=== PATIENT | female | born 1950 | race Caucasian/White ===

== ENCOUNTER 2018-09-18 15:53 | Observation (INO) | payer MEDICARE ==
[2018-09-18] MEDS ORDERED: 0.9 % SODIUM CHLORIDE 1,000 ML BAG IV ONE (16:00)
--- NOTE | 2018-09-18 16:19 | Emergency Department Record ---
History of Present Illness - General Chief complaint: Weakness Stated complaint: IKNACREASED WEAKNESS Time Seen by Provider: 09/18/18 16:00 Source: Patient, RN notes reviewed - History of Present Illness Initial comments: Patient states she is unable to get around by herself and getting weaker and she has some redness of the left ankle and her primary is Dr. Roldan and she has redness in her sacrum. Currently she is living alone and her sister is helping and she is unable to help her. Daughter is here with her. 10 days ago she started getting weaker and family would like alf care. Daughter lives couple miles from her apartment. Daughter is Candy Mergener. Bilateral ankle edema. Patient uses an electric wheel chair - Related Data Home Medications Medication Instructions Recorded Confirmed Last Taken No Home Med [NO HOME MEDS] 09/18/18 09/18/18 Unknown Allergies Allergy/AdvReac Type Severity Reaction Status Date / Time No Known Drug Allergies Allergy Verified 03/12/15 18:58 Review of Systems Reviewed: No additional complaints except as noted below Constitutional: Reports: As per HPI, Weakness. Denies: Chills, Fever, Malaise, Night sweats, Weight change Eyes: Reports: As per HPI. Denies: Eye discharge, Eye pain, Photophobia, Vision change ENT: Reports: As per HPI. Denies: Congestion, Dental pain, Ear pain, Epistaxis , Hearing loss, Throat pain Respiratory: Reports: As per HPI. Denies: Cough, Dyspnea, Hemoptysis, Stridor, Wheezes Cardiovascular: Reports: As per HPI, Edema. Denies: Arrhythmia, Chest pain, Dyspnea on exertion, Murmurs, Orthopnea, Palpitations, Paroxysmal nocturnal dyspnea, Rheumatic Fever, Syncope Endocrine: Reports: As per HPI. Denies: Fatigue, Heat or cold intolerance, Polydipsia, Polyuria Gastrointestinal: Reports: As per HPI. Denies: Abdominal pain, Constipation, Diarrhea, Hematemesis, Hematochezia, Melena, Nausea, Vomiting Genitourinary: Reports: As per HPI. Denies: Abnormal menses, Discharge, Dyspareunia, Dysuria, Frequency, Hematuria, Incontinence, Retention, Urgency Musculoskeletal: Reports: As per HPI. Denies: Arthralgia, Back pain, Gout, Joint swelling, Myalgia, Neck pain Skin: Reports: As per HPI, Other (redness left leg with edema). Denies: Bruising, Change in color, Change in hair/nails, Lesions, Pruritus, Rash Neurological: Reports: As per HPI. Denies: Abnormal gait, Confusion, Headache, Numbness, Paresthesias, Seizure, Tingling, Tremors, Vertigo, Weakness Psychiatric: Reports: As per HPI. Denies: Anxiety, Auditory hallucinations, Depression, Homicidal thoughts, Suicidal thoughts, Visual hallucinations Hematological/Lymphatic: Reports: As per HPI. Denies: Anemia, Blood Clots, Easy bleeding, Easy bruising, Swollen glands Physical Exam - General General Appearance: Alert, Oriented x3, Cooperative, No acute distress - Head Head exam: Normal inspection - Eye Eye exam: Normal appearance, PERRL Pupils: Normal accommodation - ENT ENT exam: Normal exam, Mucous membranes moist, Normal external ear exam, Normal orophraynx, TM's normal bilaterally Ear exam: Normal external inspection. negative: External canal tenderness Nasal Exam: Normal inspection. negative: Discharge, Sinus tenderness Mouth exam: Normal external inspection, Tongue normal Teeth exam: Normal inspection. negative: Dental caries Throat exam: Normal inspection. negative: Tonsillar erythema, Tonsillar exudate - Neck Neck exam: Normal inspection, Full ROM. negative: Tenderness - Respiratory Respiratory exam: Normal lung sounds bilaterally. negative: Respiratory distress - Cardiovascular Cardiovascular Exam: Regular rate, Normal rhythm, Normal heart sounds - GI/Abdominal GI/Abdominal exam: Soft, Normal bowel sounds. negative: Tenderness - Rectal Rectal exam: Deferred - exam: Deferred - Extremities Extremities exam: Normal inspection, Full ROM, Normal capillary refill. negative: Tenderness - Back Back exam: Reports: Normal inspection, Full ROM. Denies: Muscle spasm, Rash noted, Tenderness - Neurological Neurological exam: Alert, Normal gait, Oriented X3, Reflexes normal - Psychiatric Psychiatric exam: Normal affect, Normal mood - Skin Skin exam: Intact, Other (discoloration of sacrum redness no ulcer but it doesn' t [place]. Early Decubitus, patient states she bumps herself getting into her wheel chair on the sacrum) Course - Reevaluation(s) Reevaluation #1: medical condition explained to me by her daughter and sister. Patient has not seen a neurologist in a long time and Dr. Roldan was trying to get her in to [facility] neurologist. 09/18/18 16:32 09/18/18 16:36 Reevaluation #2: patient is refusing to go home and family is refusing to take he home. patient unable to to transfer and needs one person to assist her. Her sister says she can not do it anymore. The family tells they have [place] social media manager coming out to see them this coming week but these refuse to go home to wait for that service. 09/18/18 17:44 Reevaluation #3: talked to family and will keep as an observation patient and have social service help place patient at a assisted. Family refusing to go home. 09/18/18 18:05 Medical Decision Making - Data Complexity MDM Data: Labs Ordered and/or Reviewed (potassium 3.3), X-Ray Ordered and/or Reviewed (chest xray no acute changes with a hiatal hernia), EKG Ordered and/or Reviewed (EKG NSR , No acute changes with tremor artifact from MS) - Lab Data Result diagrams: 09/18/18 16:05 09/18/18 16:05 Disposition Clinical Impression: Multiple sclerosis, Tremor, Weakness, Dehydration Sacral decubitus ulcer Qualifiers: Pressure injury stage: stage 1 Qualified Code(s): L89.151 - Pressure ulcer of sacral region, stage 1 Decision to Admit: Admit from ER Condition: (2) Stable Forms: Patient Portal Access Time of Disposition: 17:51 Quality - Quality Measures Quality Measures: N/A - Blood Pressure Screening Does Patient Have Any of the Following: No Blood Pressure Classification: Pre-Hypertensive BP Reading Systolic Measurement: 180 Diastolic Measurement: 89 Screening for High Blood Pressure: < First Hypertensive BP, F/U Documented > [ [id number]] First Hypertensive Follow-up Interventions: Referral to alternative/primary care provider.
[2018-09-18 16:21] LABS: BASO % 0.5 % (0-6); EOS % 3.2 % (0-6); LYMPH % 15.3 % (16-45); MEAN CELL VOLUME 83.7 fl (81-97); MEAN CORPUSCULAR HEMOGLOBIN 28.5 pg (27-33); MEAN CORPUSCULAR HGB CONC 34.1 g/dl (32-36); MEAN PLATELET VOLUME 9.5 fl (7.4-10.4); PLATELET COUNT 347 K/uL (130-400); RED BLOOD COUNT 5.26 M/uL (3.80-5.40); RED CELL DISTRIBUTION WIDTH 13.7 % (11.5-14.5); WHITE BLOOD COUNT W/O DIFF 5.6 K/uL (4.2-12.2)
[2018-09-18 16:32] LABS: BLOOD UREA NITROGEN 19 mg/dL (8-23); CREATININE 0.6 mg/dL (0.5-0.9); EST GLOMERULAR FILTRATION RATE > 60 mL/min
[2018-09-18 16:33] LABS: LIPASE 29 U/L (13-60); TOTAL PROTEIN 7.4 g/dL (6.6-8.7)
[2018-09-18 16:35] LABS: GLUCOSE,RANDOM 106 mg/dL (74-109)
[2018-09-18 16:37] LABS: ALT/SGPT 21 U/L (<33)
[2018-09-18 16:38] LABS: ALB/GLOB RATIO 1.4 (1.1-1.8); ALBUMIN 4.3 g/dL (4.0-5.0); ALKALINE PHOSPHATASE 99 U/L (45-87); AST/SGOT 30 U/L (10.0-35.0)
[2018-09-18 16:43] LABS: URINE APPEARANCE CLOUDY; URINE BILIRUBIN NEGATIVE (NEGATIVE); URINE BLOOD SMALL (NEGATIVE); URINE COLOR YELLOW; URINE GLUCOSE (UA) NEGATIVE (NEGATIVE); URINE KETONE 15 mg/dL (NEGATIVE); URINE LEUKOCYTE ESTERASE NEGATIVE (NEGATIVE); URINE NITRITE NEGATIVE (NEGATIVE); URINE PROTEIN TRACE (NEGATIVE); URINE UROBILINOGEN 0.2 E.U./dL (0.20 - 1.00)
[2018-09-18 16:50] LABS: URINE RBC 16 - 25 (NONE SEEN)
[2018-09-18 16:51] LABS: URINE BACTERIA NONE SEEN; URINE EPITHELIAL CELLS 0 - 2 (FEW); URINE WBC NONE SEEN (0-2/hpf)
[2018-09-18] MEDS ORDERED: POTASSIUM CHLORIDE 20 MEQ TABLET PO ONE (16:55)
[2018-09-18] MEDS ORDERED: NYSTATIN 15 GM TUBE TOP PRN (19:24)
--- NOTE | 2018-09-19 07:21 | RADIOLOGY REPORT ---
EXAM: CHEST, TWO VIEWS HISTORY: PATIENT IS EXHIBITING WEAKNESS. TECHNIQUE: Two views of the chest are provided along with the comparison study dated 03/03/18. FINDINGS: The cardiomediastinal silhouette is within normal limits for size and contour. The jd appear unremarkable. A significant large hiatal hernia is again noted. There is no radiographic evidence of a focal infiltrate, pleural effusion, or pneumothorax. IMPRESSION: LARGE HIATAL HERNIA APPEARS SIMILAR TO THE PRIOR EXAMINATION. NO RADIOGRAPHIC EVIDENCE OF A NEW, ACUTE INTRATHORACIC PROCESS. JOB NUMBER: [id number] [facility]
[2018-09-19] MEDS: ENOXAPARIN 40 MG/0.4 ML SYR SC SCH (09:21)
[2018-09-19] MEDS: ACETAMINOPHEN 500 MG TABLET PO PRN ×2 (10:32→23:23)
--- NOTE | 2018-09-19 10:49 | Rehab Evaluation ---
Patient Information - Patient Information Diagnosis: MS, weakness, dehydration, decubitus on sacrum Ordered Treatment: OT Evaluate and Treat Status: Initial Evaluation Surgery: No Past Medical/Surgical Hx: PAST MEDICAL/SURGICAL HISTORY Past Surgical History c-sections PMH - Respiratory Hx Respiratory Disorders No PMH - Cardiovascular Hx Cardiovascular Disorders No PMH - Neuro Hx Neurological Disorders Yes Comment: MS PMH - GI Hx Gastrointestinal Disorders No PMH - Hx Genitourinary Disorders No Patient No PMH - Endocrine Hx Endocrine Disorders No PMH - Musculoskeletal Hx Musculoskeletal Disorders Yes Hx Musculoskeletal Disease Yes: MS PMH - Psych Hx Psychiatric Problems No PMH - Hematology/Oncology Hx Hematology/Oncology No Disorders Premorbid Status: Detail (Pt lives alone in a 1st floor barrier free apartment. She uses an electric wheelchair and has not been ambulatory for a long time. She has a tub/shower combination with an extended tub seat and grab bars and an elevated toilet with grab bars. She has assist from [employer] for showering and housekeeping activities. She was able to pivot onto the shower seat and toilet using grab bars prior to admission but she has become significantly weaker and has not been able to get out of her wheelchair. Pt reports she sleeps in a recliner chair. She is Ind with laundry and meal prep ( she receives meals on wheels).) Precautions: [place], Fall, Other (wheelchair bound) - Time With Patient Total Time Spent With Patient (Min): 40 Treatment Procedures: Detail (OT eval low complexity) Subjective Information - Subjective Information Per Patient Objective Data - Pain Pain Present: No (Pt reports no pain at rest.) - Mental Status Patient Orientation: Oriented x3 - Visual Perception Appears within normal limits for therapeutic activities - ROM Within normal limits (Mike UE AROM grossly WNL.) - Strength/Tone Not within normal limits (Mike shoulder flexion 3+/5, mike elbows and cigar wrapper strength 4+/5.) - Coordination Deficit (Pt presents with significant tremors with Left UE movements and mild tremors with Right UE movements. Pt reports she is unable to pickle sorter small items or use hands to run bed controls.) - Bed Mobility Dependent (Max assist x 2 for supine to sit, rolling side to side and scooting up in bed.) - Transfers Dependent (Not formally assessed as pt does not have her shoes or wheelchair present.) - Balance Balance Sitting: Poor (Max assist to support patient in sitting at EOB.) - Sensation Deficit (Pt reports mike UE numbness due to MS.) - ADL's/IADL's Detail (Pt requires total assist for all self cares at this time.) Therapy Assessment - Therapy Assessment Detail (Pt presents with significant impairments in functional mobility and self cares which have worsened over the last few weeks.) Problem List - Problem List Occupational Therapy Problem List: Detail (1. Decreased Ind with transfers. 2. Decreased Ind with self care tasks.) Goals - Goals Occupational Therapy Goals: 1. Pt will complete bed to wheelchair transfer with mod assist or better. 2. Pt will be Ind with total body dressing. Prognosis - Prognosis Good Plan - Plan Occupational Therapy Plan: OT 2-4 times per week. Recommend continued OT to maximize her Ind with functional mobility and self cares.
--- NOTE | 2018-09-19 12:05 | Rehab Evaluation ---
Patient Information - Patient Information Diagnosis: MS, weakness, dehydration, decubitus on sacrum Ordered Treatment: PT Evaluate and Treat Status: Initial Evaluation Surgery: No Past Medical/Surgical Hx: PAST MEDICAL/SURGICAL HISTORY Past Surgical History c-sections PMH - Respiratory Hx Respiratory Disorders No PMH - Cardiovascular Hx Cardiovascular Disorders No PMH - Neuro Hx Neurological Disorders Yes Comment: MS PMH - GI Hx Gastrointestinal Disorders No PMH - Hx Genitourinary Disorders No Patient No PMH - Endocrine Hx Endocrine Disorders No PMH - Musculoskeletal Hx Musculoskeletal Disorders Yes Hx Musculoskeletal Disease Yes: MS PMH - Psych Hx Psychiatric Problems No PMH - Hematology/Oncology Hx Hematology/Oncology No Disorders Premorbid Status: Detail (Pt lives alone in a 1st floor barrier free apartment. She uses an electric wheelchair and has not been ambulatory for a long time. She has a tub/shower combination with an extended tub seat and grab bars and an elevated toilet with grab bars. She has assist from [employer] [facility] for showering and housekeeping activities. She was able to pivot onto the shower seat and toilet using grab bars prior to admission but she has become significantly weaker and has not been able to get out of her wheelchair. Pt reports she sleeps in a recliner chair. She is Ind with laundry and meal prep ( she receives meals on wheels).) Precautions: [place], Fall, Other (wheelchair bound) - Time With Patient Total Time Spent With Patient (Min): 30 Treatment Procedures: Detail (Initial Evaluation.) Subjective Information - Subjective Information Per Patient (The patient had no complaints of pain.) Objective Data - Mental Status Patient Orientation: Oriented x3 - Visual Perception Appears within normal limits for therapeutic activities - ROM Not within normal limits (The patient has moderately limited bilateral ankle dorsiflexion PROM ( aprox. -20 to 30 degrees), minimal limitations bilaterally in knee flexion, hip abduction and flexion.) - Strength/Tone Not within normal limits (The patient has both 2-/5 hip flexors (ie: SLR). No other LE movement was noted. The patient has increased bilateral LE tone in extensor pattern level 3 on Álvaro Scale. LE mucle tone was reduced when patient was sitting on the edge of the bed) - Bed Mobility Needs Assist (The patient required maximal PA of 2 for supine to and from sit, rolling and scooting up in bed.) - Transfers Needs Assist (Transfers were not assessed at this time.) - Balance Balance Sitting: Poor (The patient required maximal assist of 1 to maintain upright position when sitting on the edge of the bed. The patient exhibited increased trunk extensor tone.) Balance Standing: Poor (Not assessed.) - Gait Detail (The patient is nonambulatory. The patient refused to attempt standing due to feeling her LE's were too weak.) Therapy Assessment - Therapy Assessment Detail (The patient exhibits increased LE extensor tone , decreased LE ROM and requires maximal assistance with bed mobilty. The patient was living alone and transferring independently prior to hospital admission. Feel the patient would benefit from PT for PROM, stretching of LE 's and tone reduction techniques to improve transfer ability and bed mobility, transfer training to maximize the patient's functional ability.) Problem List - Problem List Physical Therapy Problem List: Detail (1) Increased bilateral LE tone and increased trunk tone 2) Decreased LE PROM 3) Maximal assistance with bed mobility and transfers.) Occupational Therapy Problem List: Detail (1. Decreased Ind with transfers. 2. Decreased Ind with self care tasks.) Goals - Goals Physical Therapy Goals: 1) patient will require moderate assist of one with bed mobility. 2) Patient will require moderate assist of one for pivot transfer. Occupational Therapy Goals: 1. Pt will complete bed to wheelchair transfer with mod assist or better. 2. Pt will be Ind with total body dressing. Prognosis - Prognosis Good Plan - Plan Physical Therapy Plan: PT 1 time a day for bed mobility, transfer training, LE PROM, tone reduction techniques and sitting balance exercises. Occupational Therapy Plan: OT 2-4 times per week. Recommend continued OT to maximize her Ind with functional mobility and self cares.
--- NOTE | 2018-09-19 14:11 | History and Physical Report ---
DATE: 09/19/2018 CHIEF COMPLAINT: Inability to get out of her chair. Unable to walk. Exacerbation of multiple sclerosis. HISTORY OF PRESENT ILLNESS: This 67-year-old female who has been managing with her multiple sclerosis using a motorized wheelchair to get around and able to pivot and walk a few steps in between a chair to the bed and the wheelchair was unable to walk for the last 7-10 days and was basically stuck in her chair. She was using briefs to urinate. She has been living alone up to this point. Her sister who lives fairly close has been coming over to help with various needs up to this point but the sister who is 75 years old says she cannot do it anymore. She has had MS for 25 years. She is eating and feeding herself. She said that her appetite has been down somewhat. Mostly because she is just not able to get the food to eat. She was brought into the emergency department because the family would like her placed in a living situation where she has assistance and they are concerned why she cannot get up out of a chair to ambulate a few steps as she has in the past. The patient states that she is unable to get around and take care of herself. She was stuck in her chair for the last 10 days. She has had her sister come in and help change her Depends but normally she is able to walk a few steps to go from the wheelchair to the chair to the bed. She has a motorized wheelchair. The daughter was here with her. She lives a few miles away. The sister lives also in [place] 10 miles away. She says she is unable to continue doing this because she is 75 years old. The family stated that she got much weaker in the past 10 days and they are looking for long-term care. The daughter is Candy Turpin. She has some bilateral ankle edema. The daughter was saying that maybe there was some redness there. I do not see any redness or infection but she does have some small amount of bilateral ankle edema. They were concerned more about the left ankle but I do not see any infection at this time. There is some maceration between the toes and it looks like a little tinea of the toes. We will treat that with some antifungal cream. PAST MEDICAL HISTORY: Multiple sclerosis for 25 years. PAST SURGICAL HISTORY: section. MEDICATIONS: No home medications. ALLERGIES: No known drug allergies. FAMILY/PSYCHOSOCIAL HISTORY: Unremarkable. Never smoked cigarettes. No alcohol or drug use. REVIEW OF SYSTEMS: HEENT: No upper respiratory infection symptoms, cough, cold, or congestion. Cardiovascular: No chest pain, palpitations, arrhythmia, or orthopnea. Respiratory: No shortness of breath, cough, cold, or congestion. Gastrointestinal: No nausea, vomiting, diarrhea, black stools, or bloody stools. She is eating breakfast at my evaluation. No dysphagia. Genitourinary: No dysuria, hematuria, frequency, or burning on urination. Musculoskeletal: She has some aches and pains in her joints but nothing significant. No falls in the last month. Neurological: She has multiple sclerosis and tremor and inability to walk more than a couple steps because of her multiple sclerosis prior to 10 days ago. ART MODEL: No lumps in her breasts or abnormal vaginal bleeding. She had a . Endocrine: No diabetes or thyroid disease. Integument: No rash, ulcers, change in moles, or yellow skin. On her sacrum, she does have some redness and irritation but no open wound and the ankles are slightly red. There is no significant redness in the left ankle; however, there is some maceration between the toes like tinea pedis. PHYSICAL EXAMINATION: VITALS: Height 5 feet, weight 140 pounds. Temperature 97.7, pulse 72, blood pressure 136/52, respiratory rate 18, pulse ox 95% on room air. There are actually 2 weights in the chart. One is 127, which I think is a bed scale, and the other is 140. That might be a stated weight. The weight will have to be reassessed. HEENT: Pupils are equal, round, and reactive to light and accommodation. Extraocular muscles are intact. Throat is clear. Nose is clear. Tympanic membranes are ibarra. NECK: Supple. No jugular venous distention. No hepatojugular reflux. No carotid bruits. Thyroid is smooth. CARDIOVASCULAR: Regular rate and rhythm without murmurs, clicks, rubs, or gallops. RESPIRATORY: Clear to auscultation and percussion. ABDOMEN: Soft, nontender. No hepatosplenomegaly, no masses, no tenderness. Bowel sounds are active. No bruits. EXTREMITIES: There is some edema of both ankles but nothing in the lower legs. There is some maceration of the left toes like a tinea. Otherwise, she is moving her legs on the cart reasonably well. BREASTS: Exam deferred. GYNECOLOGICAL: Exam deferred. RECTAL: Exam deferred. SACRUM: Examined in the emergency department and she has redness there and the skin is hard. There is no blanching of the skin and there is no open wound but she is beginning a stage 1 decubitus ulcer. NEUROLOGIC: Cranial nerves II-XII intact. No gross defects. Sensation normal. Her strength is abnormal in her legs and her arms. She has a tremor of the arms and legs from her MS. Babinski is positive. MENTAL STATUS: Alert and oriented x3. IMPRESSION: 1. Exacerbation of multiple sclerosis. 2. Weakness. Unable to walk for the last 10 days. 3. Dehydration, improved in the emergency department with IV fluids. 4. Tremor which is part of her multiple sclerosis in her arms and legs. PLAN: Observation. Social work consult. Physical therapy for evaluation and to set up placement in a custodial. PRIMO
[2018-09-19] MEDS ORDERED: MAGNESIUM HYDROXIDE 30 ML UDC PO PRN (14:44)
[2018-09-20] MEDS: ACETAMINOPHEN 500 MG TABLET PO PRN (05:44)
[2018-09-20] MEDS ORDERED: POTASSIUM CHLORIDE 20 MEQ TABLET PO ONE (07:15)
--- NOTE | 2018-09-20 07:34 | Discharge Note ---
VTE H&P Assessment - Risk for VTE Risk for VTE: Yes Risk Level: Moderate Risk Assessment Date: 09/19/18 Risk Assessment Time: 09:00 VTE Orders Placed or Will Be Placed: Yes Discharge Medications - Discharge Medications Prescriptions: Nystatin 1 gm TOP TID #30 cream Home Medications: Ambulatory Orders Acetaminophen [Tylenol 500Mg Tab] 500 mg PO Q6H PRN tablet 09/20/18 [Last Taken Unknown] Nystatin 1 gm TOP TID #30 cream 09/20/18 [Last Taken Unknown] Discharge Note - Date Date of Discharge Note: 09/20/18 Disposition: Intermediate Facility Condition: (1) Good Additional Instructions: follow up with Dr Marcum after discharge from [facility]. Forms: Patient Portal Access Activity at Discharge: Increase Activity as Tolerated Diet at Discharge: Low Salt Diet
[2018-09-20] MEDS: ENOXAPARIN 40 MG/0.4 ML SYR SC SCH (09:12)
[2018-09-20] MEDS ORDERED: NYSTATIN 15 GM TUBE TOP SCH (10:00)
--- NOTE | 2018-09-20 12:21 | Discharge Summary ---
DATE: 09/20/2018 Observation patient. DISCHARGE DIAGNOSES: 1. Exacerbation of multiple sclerosis. 2. Weakness, improving. 3. Tinea between the toes. 4. Hypokalemia. Her potassium is 3.2 and on discharge going to give 20 mEq of oral potassium and she will need to have her potassium rechecked next week. Encouraged her to eat more bananas. 5. Tremors of extremities more so on the upper extremities. 6. Dehydration, resolved. 7. Status post multiple sclerosis for 25 years. The patient may have an outpatient appointment with Neurology at [facility] [place], Dr. Thomason. Her primary doctor was setting that up the last visit she had to his office. 8. Tinea pedis being treated with nystatin cream. ATTENDING PHYSICIAN: Jamie Reed DO REASON FOR HOSPITALIZATION: Inability to get out of her chair. She states that she was stuck in her electric motorized chair for the last 7-10 days. She is unable to walk. Normally she could take a few steps between the wheelchair and the bed and her regular chair. Also an exacerbation of multiple sclerosis, weakness, and dehydration. This 67-year-old female has been managed with multiple sclerosis using a motorized wheelchair to get around. Able to pivot and walk a few steps in between a chair to the bed and the wheelchair. Was unable to walk for the last 7-10 days and was basically stuck in her chair. She was using briefs to urinate. She has been living alone up to this point. Her sister, who lives fairly close, has been coming to help her with various needs up to this point but the sister, who is 75, says she cannot do it anymore. She has had MS for 25 years. She is eating and feeding herself. She said that her appetite has been down because she is just not able to get up and make the food. She was brought to the emergency department because her family would like her placed in a living situation where she has assistance, and they are concerned why she cannot get up out of her chair to ambulate a few steps as she has in the past. The patient states that she is no longer able to take care of herself and would like to be placed in a long-term care facility. Sister has been coming in and changing her Depends. The daughter was here in the emergency department when I saw her in the emergency department. She lives a few miles away. The sister lives in [place], 10 miles away. The daughter's name is Candy Chavez. She also has some bilateral ankle edema. They were concerned there may be redness in her left ankle but all I could see was a slight amount of swelling around the ankle from lymphedema. She does have some maceration and redness between the toes which I feel is a tinea infection of her toes, tinea pedis. SIGNIFICANT FINDINGS: Chest x-ray with large hiatal hernia appearing similar to prior exams. No radiographic evidence of a new acute intrathoracic process. EKG showing normal sinus rhythm with tremor artifact. No acute changes. WBC 5600, hemoglobin 15, potassium 3.2, sodium 148, chloride 107, BUN 19, creatinine 0.6, troponin T was negative. Urine was a catheterized specimen showing 16 and 25 cells in the urine but her bladder was fairly empty and Nursing said it was not an easy catheterization. No WBCs and on bacteria seen, 0-2 epithelial cells. THERAPY PROVIDED: The patient was given IV fluids 500 mL which seemed to resolve her dehydration. She also was given physical therapy and occupational therapy. Her legs are weak. They gave her muscle exercises in bed. She is able to feed herself, sit up in the bed. Moving fairly reasonably well; however, she is too weak to get up and walk. DISCHARGE MEDICATION: 1. Tylenol 500 mg q.6 h. p.r.n. 2. Nystatin topical cream between the toes 3 times a day. DISCHARGE INSTRUCTIONS: Follow up with Dr. Thomason and [facility]. She may have an outpatient appointment with [facility] for her multiple sclerosis. She states that she has not seen a neurologist in a long time. Previous doctor before Dr. Thomason was Dr. Dumont. I recommend she get another set of electrolytes in a week to check her potassium. Also encouraged her to eat more bananas and high-potassium foods. PRIMO
== END 2018-09-20 14:10 ==
LOC: ER 15:53 → MEDSURG 18:40
PROVIDERS: ADMIT Emergency Medicine; ATTEND Emergency Medicine
DX: R53.1 Weakness (principal); G35 Multiple sclerosis; E86.0 Dehydration; E87.6 Hypokalemia; L89.151 Pressure ulcer of sacral region, stage 1; R25.1 Tremor, unspecified; R60.9 Edema, unspecified
CPT/HCPCS: 71046; 80053; 81001; 83690; 84132; 84484; 85025; 90686; 93005; 93010; 96360; 96361; 99217; 99220; 99285; J1650; J7030